=== PATIENT | female | born 1990 | race Two or more races ===

== ENCOUNTER 2023-09-18 21:24 | Emergency (ER) | payer OTHER ==
[~2023-09-18] VITALS: Ht 162.6 cm; Wt 74.9 kg
[2023-09-18 22:58] VITALS: BP 129/91; RESP 18; TEMP 97.6
[2023-09-18 23:07] VITALS: PULSE 85
[2023-09-19] MEDS ORDERED: LORA-1123 PO (01:06)
[2023-09-19] MEDS ORDERED: FLUO-259 PO (01:06)
[2023-09-19] MEDS: LORazepam 0.5 MG TAB PO ONE (01:15)
[2023-09-19 02:14] VITALS: O2SAT 100
== END 2023-09-19 02:16 | disposition home or self-care (01) ==
LOC: ER 21:24
DX: F41.9 Anxiety disorder, unspecified (principal); J45.909 Unspecified asthma, uncomplicated